=== PATIENT | male | born 1980 | race Caucasian/White ===

== ENCOUNTER 2016-11-21 09:16 | Emergency (ER) | payer OTHER ==
[~2016-11-21] VITALS: Ht 172.7 cm; Wt 86.7 kg
[~2016-11-21 09:16] MED LIST: PROTONIX20 MG PO; ZOF4 PO
[2016-11-21 10:34] VITALS: BP 131/74
== END 2016-11-21 10:34 | disposition home or self-care (01) ==
LOC: ED 09:16
DX: J03.90 Acute tonsillitis, unspecified (principal); Z79.899 Other long term (current) drug therapy
CPT/HCPCS: J0561; J1100

== ENCOUNTER 2017-01-14 13:02 | Inpatient (IN) | payer OTHER ==
[~2017-01-14] VITALS: Ht 172.7 cm; Wt 88.0 kg
[2017-01-14 16:54] LABS: CALCIUM 8.8 mg/dL (8.5-10.1); CARBON DIOXIDE 31.9 mmol/L (21-32); CHLORIDE SERUM 102 mmol/L (98-107); GFR1 > 60 mL/min; GLUCOSE SERUM 81 mg/dL (74-106); POTASSIUM SERUM 4.4 mmol/L (3.5-5.1); SODIUM SERUM 138 mmol/L (136-145)
[2017-01-14 17:03] LABS: ALBUMIN 3.9 g/dL (3.4-5.0); ALKALINE PHOSPHATASE 75 U/L (46-116); ALT/SGPT 65 U/L (16-63); AST/SGOT 29 U/L (15-37); BILIRUBIN TOTAL 0.34 mg/dL (0.20-1.00)
[2017-01-14 17:21] LABS: PLATELET COUNT 192 x10^3mcL (130-400)
[2017-01-14 17:27] LABS: BASOPHIL % 0 % (0-2); RED CELL DISTRIBUTION WIDTH 16.9 % (11.5-14.5)
[2017-01-14 17:49] LABS: rbc morphology (normal/abnorm) ABNORMAL (NORMAL)
[2017-01-14 17:56] LABS: UA SPECIFIC GRAVITY >=1.030 (1.005-1.035); microscopic required? YES; urine erythrocyte NEGATIVE (NEGATIVE)
[2017-01-14] MEDS ORDERED: IBUPROFEN400 MG PO (18:33)
[2017-01-14] MEDS ORDERED: BIAXIN FILMTAB500 MG PO (18:34)
[2017-01-14 20:14] VITALS: BP 133/90
[2017-01-14 21:50] VITALS: BP 111/77
[2017-01-14 21:56] LABS: T3 TOTAL 1.15 ng/mL
[2017-01-14 21:57] LABS: MAGNESIUM 2.3 mg/dL (1.8-2.4); PHOSPHOROUS 3.1 mg/dL (2.5-4.9)
[2017-01-14 21:58] LABS: CHOLESTEROL/HDL RATIO 3.9
[2017-01-14 22:06] LABS: FREE T4 0.89 ng/dL (0.76-1.46); FREE THYROXINE INDEX 3.2 ug/dL (1.4-4.5); T4(THYROXINE) 9.3 ug/dL (4.7-13.3)
[2017-01-14 23:43] VITALS: BP 111/77
[2017-01-15 02:32] LABS: AMPHETAMINE QUAL UR NONE DETECTED (NEG <=1000)
[2017-01-15 06:13] LABS: PLATELET COUNT 146 x10^3mcL (130-400)
[2017-01-15 06:27] VITALS: BP 113/77
[2017-01-15 06:42] LABS: CALCIUM 8.2 mg/dL (8.5-10.1); CHLORIDE SERUM 106 mmol/L (98-107); CREATININE SERUM 0.9 mg/dL (0.7-1.3); GFR1 > 60 mL/min; GLUCOSE SERUM 103 mg/dL (74-106); POTASSIUM SERUM 4.3 mmol/L (3.5-5.1); SODIUM SERUM 140 mmol/L (136-145)
[2017-01-15 06:53] LABS: ALBUMIN 3.1 g/dL (3.4-5.0)
[2017-01-15 08:10] LABS: RED CELL DISTRIBUTION WIDTH 16.9 % (11.5-14.5)
[2017-01-15 10:10] VITALS: BP 166/72
[2017-01-15 10:32] LABS: ATYPICAL LYMPH 8 %; BAND NEUTROPHIL 1 % (0-10); BASOPHIL 1 % (0-2); MONOCYTE 10 % (0-7); SEGMENTED NEUTROPHILS 23 % (37-75)
[2017-01-15 10:33] LABS: PLATELET MORPHOLOGY PLATELETS DECREASED; rbc morphology (normal/abnorm) ABNORMAL (NORMAL); target cell (codocyte) 1+
[2017-01-15 14:00] VITALS: BP 124/77
[2017-01-15 18:30] VITALS: BP 115/87
[2017-01-15 20:58] VITALS: BP 106/60; BP 115/82
[2017-01-16 05:17] VITALS: BP 115/86
[2017-01-16 06:54] LABS: CALCIUM 8.8 mg/dL (8.5-10.1); CARBON DIOXIDE 27.4 mmol/L (21-32); CHLORIDE SERUM 105 mmol/L (98-107); CREATININE SERUM 0.9 mg/dL (0.7-1.3); GFR1 > 60 mL/min; GLUCOSE SERUM 107 mg/dL (74-106); POTASSIUM SERUM 4.5 mmol/L (3.5-5.1); SODIUM SERUM 142 mmol/L (136-145)
[2017-01-16 07:03] LABS: BASOPHIL % 0.3 % (0-2); PLATELET COUNT 180 x10^3mcL (130-400)
[2017-01-16 07:04] LABS: rbc morphology (normal/abnorm) ABNORMAL (NORMAL)
[2017-01-16 10:01] VITALS: BP 126/73
[2017-01-16] MEDS ORDERED: LAC PO (10:23)
[2017-01-16] MEDS ORDERED: ZITHROMAX500 MG PO (10:27)
[2017-01-16] MEDS ORDERED: AMOXICILLIN875 MG PO (10:28)
[2017-01-16 12:55] VITALS: BP 126/73
== END 2017-01-16 14:25 | disposition home or self-care (01) | DRG 139 ==
LOC: ED 13:02 → DU 17:53 → MU 01-16 06:51
PROVIDERS: Emergency Medicine; ADMIT Family Medicine
DX: J18.9 Pneumonia, unspecified organism (principal); N17.0 Acute kidney failure with tubular necrosis; E78.5 Hyperlipidemia, unspecified; R00.0 Tachycardia, unspecified; E44.0 Moderate protein-calorie malnutrition; F17.200 Nicotine dependence, unspecified, uncomplicated; D64.9 Anemia, unspecified; Z68.29 Body mass index [BMI] 29.0-29.9, adult; Z87.891 Personal history of nicotine dependence; Z79.1 Long term (current) use of non-steroidal anti-inflammatories (NSAID); Z83.3 Family history of diabetes mellitus
CPT/HCPCS: 36600; 83880; 84439; J0456; J0696; J1885; J2405; J7030; J7050; J7620; Q0092